=== PATIENT | male | born 1995 | race African-American/Black ===

== ENCOUNTER 2024-03-30 14:13 | Emergency (ER) | payer OTHER ==
[2024-03-30] MEDS ORDERED: Sodium Chloride 0.9% 2.5 ML Syringe FLUSH PRN (14:24)
[2024-03-30] MEDS ORDERED: Sodium Chloride 0.9% 10 ML Syringe FLUSH PRN (14:24)
[2024-03-30 14:33] LABS: BASOPHILS ABSOLUTE AUTO 0.08 K/uL (0.00-0.20); BASOPHILS PERCENT AUTO 0.6 % (0.0-1.0); EOSINOPHILS ABSOLUTE AUTO 0.23 K/uL (0.00-0.45); EOSINOPHILS PERCENT AUTO 1.7 % (0.0-6.0); HEMATOCRIT 42.3 % (42.0-52.0); IMMATURE GRAN ABSOLUTE AUTO 0.03 K/uL (0.00-0.05); IMMATURE GRAN PERCENT AUTO 0.2 % (0.0-0.4); LYMPHOCYTES ABSOLUTE AUTO 2.11 K/uL (1.00-4.80); LYMPHOCYTES PERCENT AUTO 15.4 % (24.0-44.0); MEAN CORPUSCULAR HEMOGLOBIN 28.6 pg (28.0-32.0); MEAN CORPUSCULAR HGB CONC 33.1 g/dL (32.0-36.0); MEAN CORPUSCULAR VOLUME 86.5 fL (83.0-99.0); MEAN PLATELET VOLUME 10.2 fL (9.4-12.4); MONOCYTES ABSOLUTE AUTO 0.89 K/uL (0.00-0.80); MONOCYTES PERCENT AUTO 6.5 % (0.0-8.0); NEUTROPHILS PERCENT AUTO 75.6 % (41.0-71.0); PLATELET COUNT,PLT 265 K/uL (150-400); RED BLOOD CELL COUNT 4.89 M/uL (4.52-5.90); WHITE BLOOD CELL COUNT,WBC 13.74 K/uL (3.9-11.3)
[2024-03-30 14:49] LABS: INR 1.05 (0.86-1.11); PTT,PARTIAL THROMBOPLSTIN TIME 27.6 SEC (23.9-30.7)
[2024-03-30 15:08] LABS: A/G RATIO 1.3 (0.9-1.6); ALANINE AMINOTRANSFERASE,ALT 22 IU/L (14-63); ALBUMIN 4.2 g/dL (3.4-5.0); ALKALINE PHOSPHATASE 71 U/L (46-116); ASPARTATE AMNIOTRANSFERASE,AST 18 IU/L (15-37); BILIRUBIN TOTAL 0.4 mg/dL (0.2-1.0); BLOOD UREA NITROGEN,BUN 18 mg/dL (7.0-18.0); CALCIUM 9.3 mg/dL (8.5-10.1); CARBON DIOXIDE,CO2 28.2 mmol/L (21.0-32.0); CHLORIDE,CL 108 mmol/L (98-107); CREATININE 1.4 mg/dL (0.8-1.3); ETHANOL BLOOD MEDICAL <3 mg/dL; GLUCOSE RANDOM 92 mg/dL (74-106); POTASSIUM,K 4.2 mmol/L (3.5-5.1); PROTEIN TOTAL,TP 7.4 g/dL (6.4-8.2); SODIUM,NA 146 mmol/L (136-148)
[2024-03-30 15:10] LABS: ESTIMATED GFR 71 mL/min (>60)
[2024-03-30] MEDS: Iopamidol 755 MG/ML 500 ML Multipack Bottle IVPUSH STA (15:18)
== END 2024-03-30 17:19 | disposition home or self-care (01) ==
LOC: MW.ED 14:13
DX: S50.311A Abrasion of right elbow, initial encounter (principal); Z75.8 Other problems related to medical facilities and other health care; V89.2XXA Person injured in unspecified motor-vehicle accident, traffic, initial encounter
CPT/HCPCS: 36415; 70450; 71260; 72125; 73030; 73070; 74177; 80053; 80307; 84484; 85025; 85610; 85730; 86850; 86900; 86901; 99284; Q9967